=== PATIENT | male | born 1995 | race African-American/Black ===

== ENCOUNTER 2023-10-22 08:50 | Emergency (ER) | payer MEDICAID ==
[~2023-10-22] VITALS: Ht 182.9 cm; Wt 97.0 kg
[2023-10-22 08:56] VITALS: O2SAT 99
[2023-10-22] MEDS ORDERED: ARIP15TA14 PO (09:28)
[2023-10-22] MEDS ORDERED: BICT1TAB PO (09:28)
[2023-10-22] MEDS ORDERED: LEVE500T98 PO (09:28)
[2023-10-22 09:47] VITALS: BP 128/77; PULSE 83; RESP 18; TEMP 98.2
== END 2023-10-22 10:14 | disposition home or self-care (01) ==
LOC: ER 08:50
DX: F31.9 Bipolar disorder, unspecified (principal); Z76.0 Encounter for issue of repeat prescription
CPT/HCPCS: 99281; 99283